=== PATIENT | female | born 1985 | race Caucasian/White ===

== ENCOUNTER 2018-06-30 07:49 | Inpatient (IN) | payer OTHER ==
[~2018-06-30] VITALS: Ht 160 cm; Wt 54.9 kg
== END 2018-07-11 18:02 | disposition home or self-care (01) | DRG 690 ==
LOC: ER 07:49 → MEDJ 21:47 → SEC-K 21:47 → MEDJ 21:49
PROC: BW21ZZZ Computerized Tomography (CT Scan) of Abdomen and Pelvis (ICD-10-PCS; principal; 2018-06-30)
DX: N10 Acute pyelonephritis (principal); B96.29 Other Escherichia coli [E. coli] as the cause of diseases classified elsewhere; D64.89 Other specified anemias; Z16.12 Extended spectrum beta lactamase (ESBL) resistance; Z87.440 Personal history of urinary (tract) infections